=== PATIENT | male | born 1950 | race Caucasian/White ===

== ENCOUNTER 2017-12-24 19:16 | Emergency (ER) | payer OTHER ==
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
[2017-12-24 19:33] VITALS: BP 180/91; PULSE 91; TEMP 98.6; BMI 35.1
[2017-12-24] MEDS ORDERED: BACITRACIN 15 GM TUBE TOPICAL OINTMENT ONE (21:18)
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
== END 2017-12-24 21:30 | disposition home or self-care (01) ==
LOC: JER 19:16 → JERFT 19:16
DX: M25.552 Pain in left hip (principal); M25.512 Pain in left shoulder; V03.90XA Pedestrian on foot injured in collision with car, pick-up truck or van, unspecified whether traffic or nontraffic accident, initial encounter; Y93.89 Activity, other specified; Y92.481 Parking lot as the place of occurrence of the external cause; Z95.5 Presence of coronary angioplasty implant and graft; I50.9 Heart failure, unspecified; I10 Essential (primary) hypertension; I25.2 Old myocardial infarction
CPT/HCPCS: 73030-TC-LT-FY; 73060-TC-LT-FY; 73523-TC-FY; 99281-25

== ENCOUNTER 2022-06-16 10:00 | Emergency (ER) | payer OTHER ==
[2022-06-16 10:27] VITALS: BMI 28.8
[2022-06-16 11:20] LABS: BASO % 1.2 % (0-2.0); EOS % 5.1 % (0-4.5); HEMATOCRIT 29.3 % (35.4-49); HEMOGLOBIN 9.5 GM/dL (11.7-16.9); LYMPH % 13.2 % (8-40); MCH 25.9 pg (25.7-33.7); MCHC 32.4 g/dl (32.0-35.9); MEAN CELL VOLUME 79.8 fl (80-96); MEAN PLT VOLUME 8.1 fl (7.5-11.1); MONO % 7.2 % (3.8-10.2); NEUT % 73.3 % (42.8-82.8); PLATELET COUNT 217 10^3/uL (134-434); RBC 3.67 M/mm3 (4.00-5.60); RDW 16.4 % (11.9-15.9); WHITE BLOOD COUNT 6.5 K/mm3 (4.0-10.0)
[2022-06-16 11:53] LABS: ALBUMIN 3.3 g/dl (3.4-5.0); CALCIUM 7.8 mg/dL (8.5-10.1); MAGNESIUM 1.6 mg/dL (1.8-2.4)
[2022-06-16 11:54] LABS: BLOOD UREA NITROGEN 38.6 mg/dL (7-18)
[2022-06-16 11:56] LABS: CREATININE 2.4 mg/dL (0.55-1.3)
[2022-06-16 11:57] LABS: PHOSPHOROUS 3.5 mg/dL (2.5-4.9)
[2022-06-16 11:58] LABS: BILIRUBIN,TOTAL 0.3 mg/dL (0.2-1)
[2022-06-16 13:50] VITALS: BP 158/68; PULSE 64; RESP 17; TEMP 97.8
== END 2022-06-16 14:43 | disposition home or self-care (01) ==
LOC: JER 10:00
DX: R42 Dizziness and giddiness (principal)
CPT/HCPCS: 0241U-QW; 36415; 71045-TC-FY; 80053; 83735; 84100; 84484; 85025; 93005; 93010; 99285-25